=== PATIENT | male | born 1975 | race African-American/Black ===

== ENCOUNTER 2020-09-07 12:06 | Emergency (ER) | payer SELFPAY ==
[2020-09-08 03:24] LABS: SARS-CoV-2 PCR by NAA Not Detected (NotDetected)
== END 2020-09-07 12:38 | disposition home or self-care (01) ==
LOC: NAV ERS 12:06
DX: R05 Cough (principal); Z20.822 Contact with and (suspected) exposure to COVID-19
CPT/HCPCS: 87635; 99283; U0003; U0005

== ENCOUNTER 2021-08-08 11:06 | Emergency (ER) | payer SELFPAY ==
[2021-08-09 00:42] LABS: SARS-CoV-2 PCR by NAA DETECTED (NotDetected)
== END 2021-08-08 12:15 | disposition home or self-care (01) ==
LOC: NAV ERS 11:06
DX: U07.1 COVID-19 (principal)
CPT/HCPCS: 87804; 99284; U0003; U0005